=== PATIENT | female | born 1990 | race Two or more races ===

== ENCOUNTER 2021-10-22 17:01 | Inpatient (IN) | payer OTHER ==
[~2021-10-22] VITALS: Ht 157.5 cm; Wt 79.4 kg
[2021-10-22] MEDS ORDERED: IRON236 MG PO (17:12)
[2021-10-22] MEDS ORDERED: PRENATAL TABLE1 EAC3 PO (17:12)
[2021-10-25] MEDS ORDERED: RHOGAM ULTR1500 UNIT IM (09:42)
== END 2021-10-25 13:43 | disposition home or self-care (01) | DRG 807 ==
LOC: LDR 17:01 → OB/GYN 17:01 → LDR 10-23 07:54 → OB/GYN 10-23 21:46
PROVIDERS: ADMIT Obstetrics & Gynecology; ATTEND Obstetrics & Gynecology
PROC: 4A1HXCZ Monitoring of Products of Conception, Cardiac Rate, External Approach (ICD-10-PCS; 2021-10-22)
PROC: 10E0XZZ Delivery of Products of Conception, External Approach (ICD-10-PCS; principal; 2021-10-23)
PROC: 0KQM0ZZ Repair Perineum Muscle, Open Approach (ICD-10-PCS; 2021-10-23)
DX: O70.1 Second degree perineal laceration during delivery (principal); Z3A.40 40 weeks gestation of pregnancy; Z37.0 Single live birth; Z20.822 Contact with and (suspected) exposure to COVID-19